=== PATIENT | male | born 1960 | race Caucasian/White ===

== ENCOUNTER 2018-05-05 11:28 | Inpatient (IN) | payer MEDICARE, BC ==
[~2018-05-05] VITALS: Ht 177.8 cm; Wt 178.3 kg
[2018-05-05 11:34] VITALS: BP 156/79
[2018-05-05 12:02] LABS: ABSOLUTE BASOPHILS 0.1 thou/uL (0.0-0.2); ABSOLUTE EOSINOPHILS 0.1 thou/uL (0.0-0.7); ABSOLUTE MONOCYTES 0.7 thou/uL (0.0-1.2); ABSOLUTE NEUTROPHILS 7.2 thou/uL (1.6-8.1); EOSINOPHILS 1.2 %; HEMATOCRIT 44.6 % (42.0-52.0); HEMOGLOBIN 14.9 gm/dL (14.0-18.0); LYMPHOCYTES 19.6 %; MCH 28.9 pg (26.0-34.0); MCHC 33.4 g/dL (28.0-37.0); MCV 86.5 fL (80.0-100.0); MONOCYTES 6.8 %; MPV 8.7 fl. (7.2-11.1); NUCLEATED RBCS 0 /100WBC; PLATELET COUNT* 289 thou/uL (150-400); POLYS 71.4 %; RBC 5.16 mil/uL (4.50-6.00); RDW-CV 13.8 % (10.5-14.5); WBC 10.1 thou/uL (4.0-11.0)
[2018-05-05 12:09] LABS: ANION GAP 15 mmol/L (7-16); BUN 18 mg/dL (7-18); CALCIUM 9.2 mg/dL (8.5-10.1); CHLORIDE 93 mmol/L (98-107); CO2 26 mmol/L (21-32); CREATININE 1.5 mg/dL (0.6-1.3); GLUCOSE 272 mg/dL (70-99); SODIUM 134 mmol/L (136-145)
[2018-05-05] MEDS ORDERED: ALLOPURINOL 10100 M1 PO (12:10)
[2018-05-05] MEDS ORDERED: MOBIC15 MG PO (12:10)
[2018-05-05] MEDS ORDERED: LOPRESSOR100 M1 PO (12:11)
[2018-05-05] MEDS ORDERED: BENAZEPRIL-HCT1 EA11 PO (12:11)
[2018-05-05] MEDS ORDERED: AMLODIPINE BESY10 MG PO (12:13)
[2018-05-05] MEDS ORDERED: HYDRALAZINE 2525 MG PO (12:14)
[2018-05-05 12:15] LABS: POTASSIUM 2.9 mmol/L (3.5-5.1)
[2018-05-05 12:20] LABS: ALBUMIN 3.7 g/dL (3.4-5.0); ALKALINE PHOSPHATASE 70 U/L (46-116); NT-PRO BRAIN NAT PEPTIDE 79 pg/mL (<300); SGOT 32 U/L (15-37); SGPT 40 U/L (30-65); TOTAL BILIRUBIN 0.7 mg/dL (<0.1-1.0); TOTAL PROTEIN 8.1 g/dL (6.4-8.2); TROPONIN-I LEVEL <0.06 ng/mL (<0.06)
[2018-05-05 12:47] LABS: APTT 25.2 Seconds (25.0-31.3); INR 1.1; PROTIME 11.1 Seconds (9.20-11.50)
[2018-05-05 12:52] LABS: URINE BILIRUBIN NEGATIVE (Negative); URINE BLOOD NEGATIVE (Negative); URINE CLARITY CLEAR; URINE COLOR YELLOW; URINE GLUCOSE-RANDOM 1+ (Negative); URINE KETONES TRACE (Negative); URINE LEUKOCYTES-REFLEX NEGATIVE (Negative); URINE NITRITE-REFLEX NEGATIVE (Negative); URINE PROTEIN TRACE (Negative); URINE SPECIFIC GRAVITY 1.025 (1.005-1.030); URINE UROBILINOGEN 0.2 E.U./dl (0.2-1.0)
[2018-05-05 14:58] VITALS: BP 172/88
[2018-05-05 15:30] VITALS: BP 143/71
[2018-05-05] MEDS ORDERED: GLUCOSAMINE HC500 MG PO (17:55)
--- NOTE | 2018-05-05 18:33 | NUR ---
RECEIVED REPORT FROM SOREN IN THE ED AND ASSUMED CARE OF PT @ 1538.PT IS A/O X4,VSS,TRACING SR ON THE MONITOR.ASSESSMENT CHARTED.IV PATENT WITH IVF INFUSING PER ORDERS.PT IS CALM AND COOPERATIVE WITH C/O HEADACHE-MEDICATIONS GIVEN.PT IS BEDREST WITH Q2 HOUR TURNS.PT BATHED AND PICTURES TAKEN OF WOUNDS.POTASSIUM REPLACEMENT PROTOCOL STARTED.BARIATRIC BED,CHAIR,AND COMMODE ORDERED.XRAY OF RIGHT SHOULDER AND KNEE COMPLETED.PT INFORMED OF PLAN OF CARE AND COMMUNICATES UNDERSTANDING.HOURLY ROUNDING COMPLETED FOR PT SAFETY.CALL LIGHT AND FALL PRECAUTIONS IN PLACE.WILL CONTINUE TO MONITOR FOR DURATION OF SHIFT.
[2018-05-05 20:25] VITALS: BP 163/74
[2018-05-06] VITALS: BP 132/69
[2018-05-06 04:00] VITALS: BP 128/69
[2018-05-06 04:59] LABS: HEMATOCRIT 40.9 % (42.0-52.0); HEMOGLOBIN 13.5 gm/dL (14.0-18.0); MCH 28.5 pg (26.0-34.0); MCHC 33.1 g/dL (28.0-37.0); MCV 86.3 fL (80.0-100.0); MPV 8.8 fl. (7.2-11.1); RBC 4.74 mil/uL (4.50-6.00); RDW-CV 13.6 % (10.5-14.5); WBC 8.3 thou/uL (4.0-11.0)
[2018-05-06 05:12] LABS: ALBUMIN 3.3 g/dL (3.4-5.0); CALCIUM 8.6 mg/dL (8.5-10.1); CREATININE 1.3 mg/dL (0.6-1.3); MAGNESIUM 1.4 mg/dL (1.8-2.4); TOTAL BILIRUBIN 0.5 mg/dL (<0.1-1.0); TOTAL PROTEIN 6.6 g/dL (6.4-8.2)
--- NOTE | 2018-05-06 06:59 | NUR ---
PT IS ABLE TO COMMUNICATE HIS NEEDS TO STAFF EFFECTIVELY. CURRENT PAIN MEDICATION REGIMEN HAS BEEN ADEQUATE FOR CONTROLLING HIS PAIN UP TO THIS TIME. PT FREQUENTLY REPOSITIONED IN BARIATRIC BED- SAYS "I CAN'T GET COMFORTABLE, I'M ISED TO SLEEPING IN A CHAIR". BARIATRIC CHAIR HAS BEEN ORDERED BUT HAS NOT ARRIVED YET.
[2018-05-06 07:55] VITALS: BP 149/66
--- NOTE | 2018-05-06 10:15 | NUR ---
RECEIVED REPORT FROM JAMARI AND ASSUMED CARE OF PT @ 8241.PT IS A/O X4,VSS,TRACING SR ON THE MONITOR.ASSESSMENT CHARTED.IV PATENT WITH IVF INFUSING PER ORDERS.PT IS CALM AND COOPERATIVE WITH C/O PAIN IN BACK-MEDICATIONS GIVEN.PT LEFT RESTING IN BED WITH CALL LIGHT AND FALL PRECAUTIONS IN PLACE.Q2 HOUR POSITION CHANGE.[facility] DELIVERED BARIATRIC CHAIR.WILL CONTINUE TO MONITOR.
[2018-05-06 11:50] VITALS: BP 133/65
--- NOTE | 2018-05-06 12:58 | EKG ---
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: : 1960 Requested By: Allan Patel Order Number: [id number] MD: Timi Young Measurements Intervals Egnar Rate: 106 P: 15 NC: 121 QRS: -26 QRSD: 131 T: 44 QT: 429 QTc: 570 Interpretive Statements Sinus tachycardia Probable left atrial enlargement Left bundle branch block No previous ECG available for comparison Electronically Signed On 05-06-2018 12:58:22 GASKET FORMER by Timi Young [email or web address] <ELECTRONICALLY SIGNED> By: Timi Young MD, [facility] 05/06/18 1258 [id number] Timi Young MD, [facility] /EPI
[2018-05-06 16:05] VITALS: BP 131/69
--- NOTE | 2018-05-06 17:13 | NUR ---
VSS.CARDIAC MONITORING IN PLACE WITH NO CHANGES.PT REMAINS ON ROOM AIR.IV PATENT WITH IVF INFUSING PER ORDERS.PT INFORMED OF PLAN OF CARE AND COMMUNICATES UNDERSTANDING.PT HAS BEEN REPOSITIONED Q2 HOURS BUT REFUSING TO BE TURNED TO THE LEFT.PT WAS EDUCATED BY NURSING STAFF ON PRESSURE SORES.PT STARTED ON PO DIABETIC MEDICATIONS AND LOW SLIDING SCALE INSULIN.PT C/O PAIN IN BACK AND HIP AND REQUESTS TO BE MOVED TO THE BARIATRIC RECLINER.PT HAS BEEN EDUCATED THAT HE IS A HIGH FALL RISK AND HAS BEEN ORDERED BEDREST BY THE DOCTOR UNTIL SEEN BY PHYSICAL THERAPY.PT ALSO EDUCATED THAT HE HAS WOUNDS ON HIS BOTTOM AND NEEDS TO STAY OFF OF IT TO HELP WITH HEALING.PT IS PERSISTANT IN ASKING AND TELLING THE NURSE HE WANTS TO GET UP.HOURLY ROUNDING COMPLETED FOR PT SAFETY.CALL LIGHT AND FALL PRECAUTIONS IN PLACE.WILL CONTINUE TO MONITOR FOR DURATION OF SHIFT.
[2018-05-06 20:00] VITALS: BP 122/63
[2018-05-07] VITALS: BP 119/70
[2018-05-07 04:00] VITALS: BP 121/61
--- NOTE | 2018-05-07 05:53 | NUR ---
ASSUMED PT CARE @ 1930. A+0 X 4. SB-SR ON THE MONITOR. Q2HR TURN. 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 BARRIER CREAM APPLIED W PERICARE. SEE EMAR AND COMPUTER CHARTING. CALL LIGHT IN REACH. HOURLY ROUNDING FOR SAFETY.
[2018-05-07 08:00] VITALS: BP 136/45
[2018-05-07 12:00] VITALS: BP 130/58
--- NOTE | 2018-05-07 12:40 | NUR ---
WOUND CARE NOTE: CONSULT RECEIVED FOR WOUND ON SACRAL. PATIENT PRESENTS WITH DENUDED SKIN BETWEEN BUTTOCK FOLDS. BELIEVE THIS IS DUE TO THE SKIN ON SKIN CONTACT WITH FRICTION. BILATERAL BUTTOCKS AND UPPER THIGHS WITH PURPLE DISCOLORATION, BUT BLANCHES WHEN TOUCHED. ALSO DOES NOT FEEL ANY DIFFERENT THAN SURROUNDING TISSUE, BELIEVE THIS IS PATIENT'S NORMAL. PATIENT ALSO HAS SKIN TAGS TO BILATERAL BUTTOCKS. BELIEVE PATIENT TYPICALLY SITS FOR LONG PERIODS OF TIME. AFTER CLEANSING BETWEEN BUTTOCKS FOLD. APPLIED BARRIER OINTMENT WITH Z-GUARD TO ASSIST WITH HEALING THE SKIN. DO NOT BELIEVE THERE IS A FUNGAL COMPONENT AT THIS TIME. RECOMMEND CLEANSE BETWEEN BILATERAL BUTTOCKS WELL, DRY WELL. APPLY Z-GUARD BARRIER OINTMENT BID AND PRN. ENCOURAGE Q2 HOUR TURNING LIMIT TIME IN CHAIR IF GETTING UP TO CHAIR, USE BARRIATRIC WAFFLE CUSHION (GREEN)
--- NOTE | 2018-05-07 15:38 | NUR ---
Pt is A&O. Resides at home with his son and dtr. Children complete ADLs. Pt states that he had been able to use a crutch to go into the restroom and kitchen. Pt stated that his crutch broke and he fell. Pt also has a shower chair. Pt states that he normally sleeps in a recliner, reporting severe back pain when he lays flat. Pt gets MOW. No home o2. No hx of skilled. Per Dr, Pt will need skilled at tx, Pt in agreement. DC community planner faxed referrals to [facility] and [facility]. Pt may be ready to tx tomorrow. Following.
--- NOTE | 2018-05-07 15:43 | NUR ---
REVENUE CYCLE ADMINISTRATOR FAXED PATIENT'S CLINICAL INFO AND PT/OT NOTES TO [facility] TO REVIEW FOR POSSIBLE SKILLED ADMISSION. CM WILL REMAIN AVIALABLE TO ASSIST AND FOLLOW NEEEDED.
[2018-05-07 16:00] VITALS: BP 142/53
[2018-05-07 19:00] VITALS: BP 157/72
--- NOTE | 2018-05-07 21:30 | NUR ---
PT ASSESSMENT COMPLETE. TRACING SR ON MONITOR. PT C/O GENERALIZED PAIN, PRN IBUPROFEN GIVEN. REFER TO COMPUTER CHARTING FOR FURTHER DETAIL. CLWR. Q2 TURNS WITH HOURLY ROUNDING FOR PT SAFETY
[2018-05-07 22:06] LABS: GLYCOHEMOGLOBIN (HGB A1C) 9.5 % (4.8-5.6)
[2018-05-08] VITALS: BP 135/68
[2018-05-08 04:00] VITALS: BP 134/69
[2018-05-08 04:56] LABS: HEMATOCRIT 39.2 % (42.0-52.0); HEMOGLOBIN 13.2 gm/dL (14.0-18.0); MCH 29.1 pg (26.0-34.0); MCHC 33.7 g/dL (28.0-37.0); MCV 86.4 fL (80.0-100.0); RBC 4.54 mil/uL (4.50-6.00); RDW-CV 13.8 % (10.5-14.5); WBC 8.1 thou/uL (4.0-11.0)
--- NOTE | 2018-05-08 05:27 | NUR ---
PT UP MOST OF THIS SHIFT. REPOSITIONED EVERY 2 HRS. PT C/O GENERALIZED ACHES. NO NEW CONCERNS. CLWR
[2018-05-08 05:30] LABS: ALBUMIN 3.1 g/dL (3.4-5.0); CALCIUM 8.4 mg/dL (8.5-10.1); CREATININE 1.1 mg/dL (0.6-1.3); MAGNESIUM 1.6 mg/dL (1.8-2.4); TOTAL BILIRUBIN 0.4 mg/dL (<0.1-1.0); TOTAL PROTEIN 6.3 g/dL (6.4-8.2)
[2018-05-08 08:00] VITALS: BP 137/67
--- NOTE | 2018-05-08 08:38 | NUR ---
[facility] declined to accept Pt for skilled. Waiting to hear back from [facility]. will continue to look for skilled placement for Pt.
--- NOTE | 2018-05-08 11:54 | NUR ---
Pt's weight confirmed, updated Dorothea at [facility]. Per , Pt will be ready to dc tomorrow.
[2018-05-08 13:17] VITALS: BP 158/78
--- NOTE | 2018-05-08 13:49 | NUR ---
ASSUMED PT CARE REPORT RECEIVED FROM NURSE. PT IS AOX4. SR ON BALLAST INSPECTOR. VSS. MAG REPLACEMENT GIVEN ALONG WITH ORDERED MEDICINE. PT WEIGHT NEEDED FOR SNF PLCMNT. WEIGHT OBTAINED AND COMMUNICATED TO CASE MANAGEMENT. PT REPOSTIONED Q2 HOURS. ACCUCHECK MONITORING. INSULIN GIVEN. PT IS MEDSURG AT 1200. WILL CONTINUE TO MONITOR
[2018-05-08 16:00] VITALS: BP 131/54
--- NOTE | 2018-05-08 17:29 | NUR ---
mag level came back to 1.5. mag replacement given to pt.
--- NOTE | 2018-05-08 17:29 | NUR ---
pt sitting in bed at this time. eating dinner, no insulin needed as per sliding scale. pt saw case management and d/c planning was discussed. pt requested to get more infomation on carb control diet. information on carb control diet printed from [employer] and given to pt.
[2018-05-08 19:15] VITALS: BP 155/68
--- NOTE | 2018-05-09 01:09 | NUR ---
PT IS M/S STATUS AT THIS TIME, NO TELEMTRY. VSS. PT C/O PAIN, ACHINESS, PRN IBUPROFEN GIVEN WITH GOOD RESULTS. PT IS A Q2 TURN, NOT COMPLIANT WITH THIS. REFER TO COMPUTER CHARTING FOR FURTHER DETAILS. CLWR
[2018-05-09 05:09] LABS: HEMATOCRIT 38.8 % (42.0-52.0); MCH 29.1 pg (26.0-34.0); MCHC 33.5 g/dL (28.0-37.0); MCV 86.8 fL (80.0-100.0); RBC 4.46 mil/uL (4.50-6.00); RDW-CV 13.6 % (10.5-14.5); WBC 7.9 thou/uL (4.0-11.0)
[2018-05-09 05:39] LABS: CALCIUM 8.5 mg/dL (8.5-10.1); MAGNESIUM 1.6 mg/dL (1.8-2.4); POTASSIUM 4.1 mmol/L (3.5-5.1)
--- NOTE | 2018-05-09 06:50 | NUR ---
PT WAS AWAKE MOST OF THIS SHIFT. PT PARTIALLY PROGRESSING TOWARDS GOALS, ATTEMPTING TO PARTICIPATE MORE IN HIS CARES. CLWR
[2018-05-09 08:00] VITALS: BP 149/70
--- NOTE | 2018-05-09 10:12 | NUR ---
TRANSFER NOTE - PT BEING TRANSFERRED TO [facility]. REPORT GIVEN TO MARY CARPIO. NO QUESTIONS. ALL BELONGINGS SENT WITH PT. PT TRAVELLED VIA BED.
--- NOTE | 2018-05-09 10:46 | NUR ---
DARIN spoke with Dorothea at [facility], they are unable to accept Pt for skilled.
--- NOTE | 2018-05-09 14:47 | NUR ---
[facility] CONTINUES TO ATTEMPT TO FIND SNF PLACEMENT FOR PATIENT. D/C SPRINKLER REPAIR TECHNICIAN SPOKE TO HILDA WITH [facility]-'NO BEDS AVAILABLE'. ZUHAIR WITH [facility]-'UNABLE TO MEET PT'S BARIATRIC NEEDS'. VLAD WITH [facility]-'NO BEDS AVAILABLE'. D/C SPRINKLER REPAIR TECHNICIAN SPOKE TO HO WITH [facility], AND SHE INFORMS THAT 'THE FACILITY DOES HAVE BEDS AVAILABLE, BUT WILL NEED TO REVIEW THE REFERRAL PRIOR TO ACCEPTING THE PATIENT. THE FACILITY HAS ACCEPTED BARIATRIC PATIENT'S IN THE PAST, BUT ACCEPTANCE WILL DEPEND ON THE PATIENT'S MOBILITY. CM WILL REMAIN AVAILABLE TO ASSIST AND FOLLOW NEEDED.
[2018-05-09 16:00] VITALS: BP 115/67
--- NOTE | 2018-05-09 17:57 | NUR ---
PATIENT A&OX4, ROOM AIR, IV LEFT AC SALINE LOCK. UP WITH ASSISTX1-2 TO SIDE OF BED AND STANDING. NO C/O PIAN/N/V. REDNESS TO BOTTOM AND SCROTOM, SKIN INTACT, BAREER CREAM APPLIED. EDEMATOUS. BEDBATH GIVEN TODAY. WAITING FOR PLACEMENT. NO OTHER CONCERNS AT THIS TIME. APPROPRIATE AND COOPORATIVE WITH CARE.
[2018-05-09 23:31] VITALS: BP 147/73
--- NOTE | 2018-05-10 03:20 | NUR ---
PT AWAKE THROUGHOUT HOURLY ROUNDS, C/O BACK PAIN , PT REPOSITIONED FREQ FOR COMFORT, DISCUSSED PLAN OF CARE AND AGREEABLE. PT NEED TO BE ENCOURAGED TO ASSSIT IN CARE.
--- NOTE | 2018-05-10 10:12 | NUR ---
ADOBE DEVELOPER CALLED HO WITH ADMISSIONS AT [facility], AND LEFT A MESSAGE TO RETURN CALL TO DISCUSS DECISION/ABILITY TO ACCEPT THE PATIENT AT D/C. CM AWAITING A RETURN CALL FROM HO. CM WILL REMAIN AVAILABLE TO ASSIST AND FOLLOW NEEDED.
[2018-05-10] MEDS ORDERED: AMARYL2 MG PO (10:33)
[2018-05-10] MEDS ORDERED: COLACE 100 MG100 MG PO (10:33)
[2018-05-10] MEDS ORDERED: MELATONIN5 M1 PO (10:33)
[2018-05-10] MEDS ORDERED: MIRALAX17 GM PO (10:33)
[2018-05-10] MEDS ORDERED: PIOGLITAZONE15 MG PO (10:33)
[2018-05-10] MEDS ORDERED: GABAPENTIN 100100 MG PO (10:33)
[2018-05-10 13:09] VITALS: BP 153/75
--- NOTE | 2018-05-10 14:18 | NUR ---
CALLED TO GIVE REPORT TO BILL AT THIS TIME. BILL WAS UPDATED ON WOUNDS, DIET, NEW ONSET DM, AMBULATION STATUS AND WEIGHT. WILL TAKE PIX OF WOUNDS PRIOR TO DC AND PT IS SET TO LEAVE WITH EMS AT 1900. WILL CONTINUE TO MONITOR AND ASSESS.
[2018-05-10 16:22] VITALS: BP 139/73
== END 2018-05-10 19:05 | DRG 683 ==
LOC: M.ERS 11:28 → M.2W 13:26 → M.TBA-ER 13:26 → M.2W 15:20 → M.3W 05-09 09:53
PROVIDERS: Family Medicine; Internal Medicine; ADMIT Family Medicine
DX: N17.9 Acute kidney failure, unspecified (principal); Z68.43 Body mass index [BMI] 50.0-59.9, adult; E86.0 Dehydration; E66.01 Morbid (severe) obesity due to excess calories; I10 Essential (primary) hypertension; E87.6 Hypokalemia; E11.9 Type 2 diabetes mellitus without complications; S40.011A Contusion of right shoulder, initial encounter; M19.011 Primary osteoarthritis, right shoulder; I87.2 Venous insufficiency (chronic) (peripheral); E83.42 Hypomagnesemia; R26.9 Unspecified abnormalities of gait and mobility; M17.12 Unilateral primary osteoarthritis, left knee; Z23 Encounter for immunization; Z83.49 Family history of other endocrine, nutritional and metabolic diseases; W18.39XA Other fall on same level, initial encounter; Y93.89 Activity, other specified; Y92.89 Other specified places as the place of occurrence of the external cause; Y99.8 Other external cause status